=== PATIENT | male | born 1960 | race Caucasian/White ===

== ENCOUNTER → 2017-02-02 | Day surgery (SDC) | payer MEDICARE, OTHER ==
[~2017-02-02] MED LIST: COUMADIN5 MG PO; HYDRALAZINE HCL25 MG PO; OXYCONTIN PO; SERTRALINE HCL50 M1 PO; SOTALOL AF80 M1 PO
--- NOTE | ~2017-02-02 | EKG ---
PATIENT: VU SAWYER UNIT #: [id number] Ventricular Rate: 89 BPM Atrial Rate: 89 BPM P-R Interval: 210 ms QRS Duration: 104 ms Q-T Interval: 398 ms QTC Calculation(Bezet): 484 ms P Brant: 80 degrees Calculated R Brant: -45 degrees Calculated T Brant: 47 degrees Diagnosis Line: Atrial flutter Diagnosis Line: Left axis deviation Diagnosis Line: Pulmonary disease pattern Diagnosis Line: Inferior infarct , possibly acute Diagnosis Line: * ACUTE SD Diagnosis Line: Abnormal ECG Diagnosis Line: No previous ECGs available Diagnosis Line: Confirmed by CELESTINE MARTINEZ MD ([id number]) on 02/03/2017 Diagnosis Line: 7:59:16 PM INTERPRETING MD: JUAN LITTLE
--- NOTE | ~2017-02-02 | OR ---
Unit #: [id number] #: [id number] Patient: ROBERT SAWYER [id number] [address] [address] [id number] MR#: [id number] NAME: ROBERT SAWYER ROOM: Date of Procedure: 02/02/2017 Admission Date: 02/02/2017 Surgeon: Inocente Garrido M.D. : 1960 Attending Physician: Inocente Garrido M.D. Referring Physician: Inocente Garrido M.D. OPERATIVE REPORT PREOPERATIVE DIAGNOSIS Malfunction of Medtronic SynchroMed intrathecal pain pump. POSTOPERATIVE DIAGNOSIS Malfunction of Medtronic SynchroMed intrathecal pain pump. PROCEDURES PERFORMED 1. Removal of Medtronic SynchroMed II intrathecal pump. 2. Replacement of SynchroMed pump with Flowonix 20 mL intrathecal pump. 3. Physician filling of pump. SURGICAL INDICATION AND RATIONALE Mr. Robert Rodriguez is a pleasant 56-year-old gentleman who has been suffering with chronic intractable pain and he was referred to me by Dr. Parish Barargan for evaluation and treatment of this patient's malfunctioned Medtronic pump. The patient did have fentanyl in the pump and the pump had experienced a terminal stall. As per Dr. Barragan's instructions, this patient's Medtronic pump was to be removed and replaced with a Flowonix intrathecal pump. The patient has undergone an extensive education process regarding the do's and don'ts and risks, alternatives, and benefits of the Flowonix pump. The patient has also undergone a cardiac evaluation and has been cleared by pi/senior research associate with caveat of stopping of Coumadin for 3 days and to resume it after the surgical procedure. DESCRIPTION OF PROCEDURE After obtaining full informed consent and after discussion with the patient of possible complications including infection, bleeding, paralysis, mild headaches, , and other perioperative complications were discussed with the patient and consent was obtained in front of nurse, Hannah. The patient was then taken to the operating theater. Preoperative antibiotic was given 30 minutes before entering the operating room. The patient was then positioned in the supine position and the anesthesiologist induced general anesthesia. The patient was then prepped and draped in the usual fashion. Then, I anesthetized the skin using a mixture of 1% lidocaine with 0.5% Marcaine with epinephrine. Then, using a #10 blade, I made an incision horizontally over the spine of the pump and without much difficulty, I was able to isolate the SynchroMed Medtronic pump and I removed it from its 4 anchors. The pocket was then copiously irrigated with irrigant, and I did make an attempt to expand the pocket to house the Prometra Flowonix pump. The Medtronic SynchroMed pump contained 5 mL of fentanyl citrate at 2000 mcg/mL. These 5 mL were Unit #: [id number] #: [id number] Patient: ROBERT SAWYER then put into the Flowonix pump. The catheter was then cut and I could see clear and free flow of CSF. I then used a special pin connector to connect this piece of catheter to the catheter belonging to the Flowonix catheter. Then, I used a special adapter to connect this new piece of catheter to the Flowonix main reservoir. Once the connection was made, I placed a protective gudino over the connection point. I then used a 24-gauge Lang needle to access the sideport, which showed clear flow of CSF. At this stage, I made a decision not to manipulate the catheter or place a new catheter since the system now was intact with clear flow of CSF through the system. I then lined the pocket with 500 mg of vancomycin powder and then placed the Flowonix pump in the pocket and secured it to the underlying tissue using 3-0 Prolene sutures. Prior to doing this, this pump was carefully irrigated with irrigant for about 20 minutes. I then inspected the incisions and all bleeders were stopped and I closed the capsule of the pump using 3-0 interrupted Vicryl sutures and the skin was approximated again with another layer of interrupted 3-0 Vicryl sutures. The skin was then approximated with demetri. A Telfa-Tegaderm dressing was then placed. The patient was then brought back to the recovery room for neurological monitoring. The patient had an uneventful recovery period and the patient's pump was started at 400 mcg fentanyl citrate per day. The patient will see Dr. Barragan in 7 days to have demetri removed and for continued management of this pump. I have told the patient that I would be available for the patient if the patient has any issues relating to the surgery or otherwise. Once again, I would like to thank Dr. Barragan for allowing me to take part in the care of this very nice patient. Dictated by... Cj Shine/lyndsey TD: 02/02/2017 22:01 JOB #: [id number] CC: Parish Barragan M.D. OPERATIVE REPORT Page 1 of 1 X Inocente Garrido MD X PROCEDURE OPERATIVE NOTE
--- NOTE | ~2017-02-02 | EKG ---
PATIENT: VU SAWYER UNIT #: [id number] Ventricular Rate: 65 BPM Atrial Rate: 288 BPM QRS Duration: 112 ms Q-T Interval: 436 ms QTC Calculation(Bezet): 453 ms P [place]: -39 degrees Calculated R [place]: -52 degrees Calculated T [place]: 31 degrees Diagnosis Line: Atrial flutter Diagnosis Line: Left axis deviation Diagnosis Line: Inferior infarct , possibly acute Diagnosis Line: Abnormal ECG Diagnosis Line: Diagnosis Line: Confirmed by CELESTINE MARTINEZ MD ([id number]) on 02/03/2017 Diagnosis Line: 7:59:31 PM INTERPRETING MD: JUAN LITTLE
[2017-02-02 14:07] LABS: HEMATOCRIT 43.2 % (38.0-50.0); HEMOGLOBIN 14.4 gm/dL (13.0-16.0); MEAN CELL VOLUME 97.4 FL (83-96); MEAN CORPUSCULAR HEMOGLOBIN 32.4 PG (28-34); MEAN CORPUSCULAR HGB CONC 33.3 g/dL (30-36); MEAN PLATELET VOLUME 7.9 FL (6.5-11.5); RED BLOOD COUNT 4.43 X10e (3.90-5.60); RED CELL DISTRIBUTION WIDTH 12.7 % (11.0-15.5); WHITE BLOOD COUNT 6.1 X10e3 (4.0-10.5)
[2017-02-02 14:19] LABS: PROTHROMBIN TIME (PATIENT) 10.5 SECONDS (9.6-11.5)
[2017-02-02 14:34] LABS: CALCIUM SERUM 9.7 mg/dL (8.4-10.2); GLOM FILT RATE Estimated 82.6 mL/min (>60); POTASSIUM 3.6 mmol/L (3.5-5.1)
== END | disposition home or self-care (01) ==
LOC: CSUR 13:33
PROVIDERS: Specialist
DX: T85.615A Breakdown (mechanical) of other nervous system device, implant or graft, initial encounter (principal); I10 Essential (primary) hypertension; I48.91 Unspecified atrial fibrillation; I48.92 Unspecified atrial flutter; F41.9 Anxiety disorder, unspecified; F32.9 Major depressive disorder, single episode, unspecified; Z79.01 Long term (current) use of anticoagulants; Z79.899 Other long term (current) drug therapy; Z90.49 Acquired absence of other specified parts of digestive tract; Z90.89 Acquired absence of other organs; Z98.890 Other specified postprocedural states
CPT/HCPCS: 80048; 85027; 85610; 93005; C1772; J0690; J1100; J1170; J2250; J3010; J3370